=== PATIENT | male | born 1940 | race Caucasian/White ===

== ENCOUNTER 2020-08-10 12:41 | Inpatient (IN) | payer MEDICARE, BC ==
[~2020-08-10] VITALS: Ht 180.3 cm; Wt 90.0 kg
[2020-08-10] VITALS (8 sets, daily range): BP systolic 151–156; BP diastolic 55–102; Ht 180.3 cm; Wt 90.0 kg
--- NOTE | ~2020-08-10 | HEMODYNAMI ---
PATIENT:ANTOLIN FIERRO MEDICAL RECORD: [id number] : 38 LOCATION:[facility] D.2123 ADMISSION DATE: 08/11/20 Generatedon:110:24 Patient name: ANTOLIN FIERRO Patient #: [id number] SSN: [id number] : 1940 Date of study: 08/13/2020 Page: Of Hemodynamic Procedure Report Patient Data Patient Demographics Procedure consent was obtained First Name: ANTOLIN Gender: Male Last Name: VADIM : 1940 Patient #: [id number] Age: 80 year(s) Race: SSN: [id number] Additional ID: [id number] Contact details [address]: [address] [place] [address] State: [place] City: [place] Zip code: [address] Past Medical History Allergies Allergen Reaction Date Comments Reported Other allergy 08/13/2020 ALBUTEROL Admission Admission Data Admission Date: 08/11/2020 Admission Time: 13:18 Arrival Date: 08/13/2020 Arrival Time: 0:00 Admit Source: Other Insurance Payor: Medicare Room #: D.2123 [facility] #: [id number] Height (in.): 71 BSA: 2.1 (m2) Height (cm.): 180.34 BMI: 27.67 (kg/m2) Weight (lbs.): 198.42 Weight (kg.): 90 Lab Results Lab Result Date: 08/13/2020 Lab Result Time: 0:00 Biochemistry Name Units Result Min Max BUN mg/dl 41 --(----)-* 7 18 Creatinine mg/dl 1.7 --(----)-* 0.6 1.3 eGFR ml/min 41 *-(----)-- 90 120 NONAFRICAN CBC Name Units Result Min Max Hematocrit % 38.4 *-(----)-- 42 54 Hemoglobin g/dl 12.6 -*(----)-- 13.5 17.5 Procedure Procedure Types Cath Procedure Diagnostic Procedure LHC Coronaries w/Grafts Aortic Root Angiography Sedation Charges Moderate Sedation 10-24 minutes Procedure Description Procedure Date Procedure Date: 08/13/2020 Procedure Start Time: 10:12 Procedure End Time: 10:23 Procedure Staff Name Function Chris Linton MD Performing Physician Faye Aguilra, RN Nurse Meera Yusuf RT Scrub Pauline Holland RT Monitor Procedure Data Cath Procedure Fluoroscopy Diagnostic fluoroscopy Total fluoroscopy Time: 1.6 time: 1.6 min min Diagnostic fluoroscopy Total fluoroscopy dose: 630 dose: 630 mGy mGy Contrast Material Contrast Material Type Amount (ml) Isovue 370 67 Entry Location Entry Primary Successful Side Size Upsize Upsize Entry Closure Succes sful Closure Location (Fr) 1 (Fr) 2 (Fr) Remarks Device Remarks Femoral Right 5 Fr Exoseal artery Estimated blood loss: 5 ml Diagnostic catheters Device Type Used For End Catheter Placement MULTIPACK JL 4.0 5Fr Procedure catheter MULTIPACK 3DRC 5Fr Procedure catheter MULTIPACK Pigtail 5 Fr Procedure catheter Procedure Complications No complications Procedure Medications Medication Administration Route Dosage Oxygen etCO2 Nasal cannula 2 l/min Heparin Flush Bag added to field 2 bags (1000units/500ml NS) Lidocaine 2% added to field 20 0.9% NaCl I.V. 100 ml/hr Fentanyl I.V. 50 mcg Versed I.V. 1 mg Hemodynamics Rest BSA: 2.1 (m2) HGB: 12.6 (g/dl) O2 Consumption: Estimated: 232.44 (ml/min) O2 Con sumption indexed: Estimated:110.69 (ml/min/m) Heart Rate: 61 (bpm) Snapshots Pre Cath Intra NCS Post Cath Vital Signs Time Heart Resp SPO2 etCO2 NIBP (mmHg) Rhythm Pain Sedation Rate (ipm) (%) (mmHg) Status Level (bpm) 10:04:44 61 19 93 0 144/60(122) NSR 0 (11) 10(A) , No pain 10:09:06 59 19 92 0 135/58(115) NSR 0 (11) 10(A) , No pain 10:13:24 61 20 93 0 138/60(113) NSR 0 (11) 9(A) , No pain 10:17:44 62 20 93 0 136/57(112) NSR 0 (11) 9(A) , No pain 10:22:00 62 19 93 0 132/64(109) NSR 0 (11) 9(A) , No pain Medications Time Medication Route Dose Verified Delivered Reason Notes Eff ectiveness by by 9:46:35 Oxygen etCO2 2 Faye Faye for low 02 Nasal l/min Lauren Aguilar, sats cannula RN RN 9:46:44 Heparin Flush added 2 Faye Faye used for Bag to bags Lauren Aguilar procedure (1000units/500ml field RN RN NS) 9:46:54 Lidocaine 2% added 20ml Faye Chris for local to vial [facility] Lauren John anesthetic field RN 9:47:08 0.9% NaCl I.V. 100 Faye Faye Per ml/hr Lauren Aguilar, physician RN RN 10:11:37 Fentanyl I.V. 50 Faye Faye for mcg Lauren Aguilar, sedation RN RN 10:11:42 Versed I.V. 1 mg Faye Faye for Lauren Aguilar, sedation RN silk trimmer Log Time Note 8:57:46 Informed consent obtained and on chart 8:58:05 Diagnostic Cath Status : Urgent 8:58:17 Arrival Date: 08/13/2020 12:00:00 AM 8:58:18 Admit Source: Other 8:58:21 Insurance Payor : Medicare 8:58:38 Patient Height : 71 inches 8:58:42 Patient Weight : 198.42 lbs 9:01:41 Lab Result : BUN 41 mg/dl 9:01:41 Lab Result : eGFR NONAFRICAN 41 ml/min 9:01:41 Lab Result : Hemoglobin 12.6 g/dl 9:01:41 Lab Result : Creatinine 1.7 mg/dl 9:01:41 Lab Result : Hematocrit 38.4 % 9:04:47 ACC Patient presents with Unstable Angina CCS Anginal Class 2--Slight limitation of ordinary activity. 9:04:50 Procedure Status Urgent Heart Cath (IP). 9:04:52 Time tracking: Regular hours (M-F 7:00 - 5:00) 9:04:57 Plan of Care:Hemodynamics will remain stable., Cardiac rhythm will remain stable., Comfort level will be maintained., Respiratory function will remain adequate., Patient/ family verbilizes understanding of procedure., Procedure tolerated without complication., Recovers from procedure without complications.. 9:05:09 H&P Date Dictated: 08/10/2020 Within 30 days and on chart.. 9:05:11 Pre-procedure instructions explained to patient. 9:05:11 Pre-op teaching completed and patient verbalized understanding. 9:05:12 Family unavailable. 9:05:14 Patient NPO since Midnight. 9:05:26 Patient allergic to Other allergyALBUTEROL 9:05:33 Lab results completed and on chart. 9:05:38 Stress Test: no; N/A ? 9:05:40 Risk of Mortality: 0.5 9:05:42 Risk of blood transfusion: 0.5 9:05:45 Risk of ZACARIAS: 2.3 9:05:46 Alarms reviewed by RValeri N. 9:05:47 Sharps counted by scrub and verified by RValeriN. 9:42:00 Meera Yusuf RT(R) sent for patient. Start room use. 9:46:35 Oxygen 2 l/min etCO2 Nasal cannula was administered by Faye Aguilar RN; for low 02 sats; Verbal order read back and verified. 9:46:44 Heparin Flush Bag (1000units/500ml NS) 2 bags added to field was administered by Faye Aguilar RN; used for procedure; Verbal order read back and verified. 9:46:54 Lidocaine 2% 20ml vial added to field was administered by Chris Linton MD; for local anesthetic; Verbal order read back and verified. 9:47:08 0.9% NaCl 100 ml/hr I.V. was administered by Faye Aguilar RN; Per physician; Verbal order read back and verified. 10:03:20 Patient received from Med II to CCL 2 Alert and oriented. Tansferred to table in Supine position. 10:03:21 Warm blankets applied, and james hugger turned on for patient comfort. 10:03:22 Correct patient and procedure confirmed by team. 10:03:22 ECG and BP/O2 sat monitors applied to patient. 10:03:24 Full Disclosure recording started 10:03:25 Vital chart was started 10:03:26 Baseline sample Acquired. 10:03:35 Rhythm: sinus bradycardia 10:03:40 Is the patient allergic to Iodine/contrast media? No. 10:03:42 Was the patient premedicated? Yes 10:03:43 Is patient on blood thinner?Yes 10:03:49 ACC The patient was administered the following blood thiners within the last 24 hours: Coumadin 10:03:51 Patient diabetic? Yes. 10:03:53 If diabetic: On Metformin? No 10:03:57 ----Pre-sedation anethsthesia assessment.---- 10:04:02 Previous problem with sedation/anesthesia? No ? 10:04:03 Snore? Yes 10:04:04 Sleep apnea? No 10:04:05 Deviated septum? No 10:04:07 Opens mouth fully? Yes 10:04:08 Sticks out tongue? Yes 10:04:09 Airway obstruction? No ? 10:04:11 Dentures? No ? 10:04:15 Pre procedure: right dorsailis pedis pulse 1+ Palpable, but thready & weak; easily obliterated 10:04:18 Patient pain scale 0/10 ?. 10:04:26 IV patent on arrival in left wrist with 0.9% NaCl at O. 10:04:33 Right groin area was prepped with chlora-prep and draped in sterile fashion 10:04:36 Use device set Femoral Dx 10:04:37 ACIST Syringe (80579) opened to sterile field. 10:04:37 Bag Decanter (2002S) opened to sterile field. 10:04:38 Medline Cath Pack ([id number]) opened to sterile field. 10:04:39 ACIST Hand Control (73036) opened to sterile field. 10:04:40 ACIST Manifold (42008) opened to sterile field. 10:04:40 DIAGNOSTIC Multipack 5Fr catheter set (JB9804) opened to sterile field. 10:04:43 SHEATH 5FR [place] (WVS605) opened to sterile field. 10:04:43 EMERALD Guide Wire (876-811) opened to sterile field. 10:04:45 Tegaderm 4 x 4 (1626W) opened to sterile field. 10:09:17 Procedure type changed to Cath procedure, Diagnostic procedure, LHC, Coronaries w/Grafts, Aortic Root Angiography, Sedation Charges, Moderate Sedation 10-24 minutes 10:09:26 --------ALL STOP TIME OUT------ 10:09:27 Final Timeout: patient, procedure, and site verified with staff and physician. All members of the team are in agreement. 10:09:28 Right groin site verified by team. 10:09:31 Fire Safety Assessment: A--An alcohol-based skin anteseptic being used preoperatively., C--Open oxygen or nitrous oxide is being used., D--An ESU, laser, or fiber-optic light is being used. 10:09:35 Physical assessment completed. ASA score P 2 - A patient with mild systemic disease as per Chris Linton MD. 10:09:41 3b) 30-44 Moderately reduced kidney function. 10:09:44 Maximum allowable contrast dose (3.7 X eGFR X 0.75)114 ml. 10:09:48 Sedation plan: IV Moderate Sedation Medication:Versed, Fentanyl 10:11:37 Fentanyl 50 mcg I.V. was administered by Faye Aguilar RN; for sedation; Verbal order read back and verified. 10:11:42 Versed 1 mg I.V. was administered by Faye Aguilar RN; for sedation; Verbal order read back and verified. 10:12:18 Procedure started. 10:12:24 Local anesthetic to right femoral artery with Lidocaine 2% by Chris Linton MD.INITIAL ACCESS ONLY 10:13:31 A 5 Fr sheath was inserted into the Right Femoral artery 10:13:45 A MULTIPACK JL 4.0 5Fr catheter was advanced over the wire and used for Procedure. 10:14:39 LCA angiography performed. 10:14:42 Injector settings: Ml/sec: 3, Volume: 6, 10:15:00 Catheter removed. 10:15:09 A MULTIPACK 3DRC 5Fr catheter was advanced over the wire and used for Procedure. 10:16:08 RCA angiography performed. 10:16:11 Injector settings: Ml/sec: 3, Volume: 6, 10:16:19 ACCDominant side:Right 10:16:48 MCINTYRE to LAD angiography performed. 10:16:56 Injector settings: Ml/sec: 3, Volume: 6, 10:17:11 Catheter removed. 10:17:18 A MULTIPACK Pigtail 5 Fr catheter was advanced over the wire and used for Procedure. 10:18:20 Aortic Root visualized 10:18:23 Injector settings: Ml/sec: 10, Volume: 20, 10:18:58 Catheter removed. 10:19:07 EXOSEAL 5Fr (EX500) opened to sterile field. 10:19:27 Sheath removed intact; hemostasis achieved with Exoseal to the Right Femoral artery. 10:19:36 Fluoroscopy dose: 630 mGy 10:19:56 Sharps counted by scrub and verified by R.N. 10:21:15 Procedure ended.(Physican Out) 10:21:29 Fluoroscopy time 01.60 minutes. 10:21:31 Flurop Dose total: 630 10:21:37 Dose Area Product 36751 mGy/cm. 10:21:39 Contrast amount:Isovue 370 67ml. 10:21:41 Maximum allowable dose exceeded? No. 10:21:46 Post-op/insertion site Right Femoral artery dressed using a 4 x 4 and Tegaderm. 10:21:48 Post right femoral artery:stable, soft, clean and dry 10:21:51 Post Procedure Pulses reassessed and unchanged 10:21:53 Post procedure: right dorsailis pedis pulse 1+ Palpable, but thready & weak; easily obliterated. 10:21:57 Post-procedure physical assessment completed. ASA score P 2 - A patient with mild systemic disease as per Chris Linton MD. 10:22:02 Post procedure rhythm: unchanged. 10:22:06 Estimated blood loss: 5 ml 10:22:09 Post procedure instruction explained to patient.Patient verbalizes understanding. 10:22:12 Patient needs reinforcement of post procedure teaching. 10:22:39 Procedure and supply charges have been captured, reviewed, submitted and are correct. 10:22:43 Procedure Complication : No complications 10:22:59 [facility] Findings: mild to moderate CAD (<70%) 10:23:00 Operative report dictated upon procedure completion. 10:23:01 See physician's report for complete and final results. 10:23:03 Report given to [facility]. 10:23:06 Patient transfered to [facility] with Bed. 10:23:08 Procedure ended. 10:23:08 Full Disclosure recording stopped 10:23:20 End room use (Document Last) 10:23:54 End room use (Document Last) 10:24:33 End room use (Document Last) 10:24:47 Vital chart was stopped Device Usage Item Name Manufacture Quantity Catalog Hospital Part Current Minimal L ot# / Number Charge Number Stock Stock Serial# Code ACIST Acist 1 54946 109617 499340 598169 20 Syringe Medical (25273) Systems Inc Bag Microtek 1 2001S 551886 61516 305350 5 Decanter Medical Inc. () Medline Medline 1 [id number] 746321 71863 145775 5 Cath Pack ([id number]) ACIST Hand Acist 1 28616 726987 187625 972790 5 Control Medical (34349) Systems Inc ACIST Acist 1 30913 540252 970644 441110 5 Manifold Medical (49952) Systems Inc DIAGNOSTIC Cardinal 1 KJ2272 141912 78153 732240 30 Multipack Health 5Fr catheter set (AL5595) SHEATH 5FR Terumo 1 YEZ904 180239 440608 311010 5 [place] (NZN531) EMERALD Cardinal 1 502-455 412422 285242 011036 5 Guide Wire [facility] (502-455) Tegaderm 4 3M 1 1626W 469527 378757 082168 5 x 4 (1626W) MULTIPACK Cardinal 1 222228 5 JL 4.0 5Fr Health catheter MULTIPACK Cardinal 1 888180 5 3DRC 5Fr Health catheter MULTIPACK Cardinal 1 854708 5 Pigtail 5 Health Fr catheter EXOSEAL 5Fr Cardinal 1 EX500 841448 769727 087531 10 (EX500) Health Signature Audit [place] Stage Time Signature Unsigned Intra-Procedure 08/13/2020 Pauline Holland 10:23:54 AM RT(R) Intra-Procedure 08/13/2020 Faye Aguilar, 10:24:33 AM RN Intra-Procedure 08/13/2020 Chris Armendariz 10:24:46 AM Abundio SCHWARTZ Signatures Performing Physician : Signature : Chris Linton MD Date : Time : Nurse : Faye Aguilar, Signature : RN Date : Time : Monitor : Pauline Young Signature : RT Date : Time : [address] [place] [address]
[2020-08-10 13:30] LABS: BASOPHILS 0.5 % (0-2); EOSINOPHILS 2.3 % (0-7); HEMATOCRIT 44.9 % (42.0-54.0); HEMOGLOBIN 14.7 g/dL (13.5-17.5); IMMATURE GRANULOCYTES 0.6 % (0-5); LYMPHOCYTE ABS# 1.04 10x3/uL (1.32-3.57); LYMPHOCYTES 9.4 % (15-50); MCH 29.3 pg (26.0-34.0); MCHC 32.7 g/dL (31.0-37.0); MCV 89.4 fL (80.0-100.0); MEAN PLATELET VOLUME 10.6 fL (7.4-10.4); MONOCYTES 8.7 % (2-11); NEUTROPHIL ABS# 8.71 10x3/uL (1.78-5.38); NEUTROPHILS 78.5 % (40-80); PLATELET COUNT 232 10x3/uL (130-400); RBC 5.02 10x6/uL (4.20-6.10); RDW 15.6 % (11.5-14.5); WBC 11.1 10x3/uL (4.8-10.8)
[2020-08-10 13:36] LABS: CALC OSMOLALITY 288 mosm/kg (275-300); CALCIUM 9.4 mg/dL (8.5-10.1); CARBON DIOXIDE 27.8 mmol/L (21.0-32.0); CHLORIDE - SERUM 106 mmol/L (98-107); CREATININE - SERUM 1.7 mg/dL (0.6-1.3); GLUCOSE 75 mg/dL (74-106); POTASSIUM - SERUM 4.4 mmol/L (3.5-5.1); SODIUM 142 mmol/L (136-145); UREA NITROGEN 33 mg/dL (7-18); eGFR NON AFRICAN AMERICAN 41 mL/min (90-120)
[2020-08-10 13:37] LABS: APTT 40.3 SECONDS (22.8-39.4); INR 2.3 (0.85-1.17); PROTIME 23.5 SECONDS (11.6-15.0)
[2020-08-10 14:00] LABS: ALBUMIN 3.5 g/dL (3.4-5.0); ALKALINE PHOSPHATASE 137 U/L (30-120); ALT (SGPT) 18 U/L (10-68); BILIRUBIN - TOTAL 0.81 mg/dL (0.2-1.3); CKMB 8.9 U/L (0.0-3.6); CREATINE KINASE 164 UL (21-232); MAGNESIUM - SERUM 2.2 mg/dL (1.8-2.4); PROTEIN - SERUM 7.7 g/dL (6.4-8.2)
--- NOTE | 2020-08-10 14:13 | NUR ---
GALLERY OR MUSEUM GUIDE JANET STATES THAT PATIENT HAS ANOTHER CRITICAL TROPONIN OF GREATER THAN 2.
--- NOTE | 2020-08-10 14:31 | NUR ---
PATIENT ASSISTED TO SITTING POSITION ON SIDE OF BED AND GIVEN URINAL.
--- NOTE | 2020-08-10 15:02 | NUR ---
GIVEN ICE WATER. PATIENT GIVEN SCHED MEDS. NAD. WILL MONITOR. DENIES FURTHER NEEDS.
[2020-08-10] MEDS ORDERED: TENORMIN50 MG PO (15:49)
[2020-08-10] MEDS ORDERED: TRUSOPT 2 % OPT10 ML EACH EYE (15:50)
[2020-08-10] MEDS ORDERED: LASIX80 MG PO (15:50)
[2020-08-10] MEDS ORDERED: GLIPIZIDE10 MG PO (15:50)
[2020-08-10] MEDS ORDERED: COZAAR50 MG PO (15:51)
[2020-08-10] MEDS ORDERED: LEVOTHYROXINE137 MCG PO (15:51)
[2020-08-10] MEDS ORDERED: NOVOLIN 70/30 110 ML SC ×2 (15:52)
[2020-08-10] MEDS ORDERED: K-DUR20 MEQ PO (15:53)
[2020-08-10] MEDS ORDERED: ALDACTONE25 MG PO (15:53)
[2020-08-10] MEDS ORDERED: PACERONE100 MG PO (15:53)
[2020-08-10] MEDS ORDERED: JANTOVEN5 MG PO (15:54)
[2020-08-10] MEDS ORDERED: TOUJEO SOL300 UNIT/1 SC (15:54)
[2020-08-10] MEDS ORDERED: PRAVACHOL20 MG PO (15:55)
--- NOTE | 2020-08-10 16:19 | NUR ---
ATTEMPTED TO CALL REPORT, CAMPGROUND CARETAKER ON MED II STATES "CAN SHE JUST CALL YOU BACK". AWAITING CALL BACK.
--- NOTE | 2020-08-10 17:06 | NUR ---
REPORT CALLED TO ALEXIA GARZA.
--- NOTE | 2020-08-10 17:55 | NUR ---
PT ARRIVED TO UNIT VIA WHEELCHAIR. PT AAOX4. NO DISTRESS NOTED. PT SETTLED INTO ROOM. CLIR. BED IN LOWEST POSITION. SIDE RAILS X2. GIVEN SANDWICH FOR DINNER
[2020-08-10 18:01] LABS: CKMB 9.6 U/L (0.0-3.6); CREATINE KINASE 158 UL (21-232)
[2020-08-10 18:05] LABS: TROPONIN-I 3.608 ng/mL (0.000-0.060)
--- NOTE | 2020-08-10 22:50 | NUR ---
INITIAL ROUNDS COMPLETED AT 1915 HRS. PT DENIED ANY DISCOMFORT. TELE PLACED AT 1950 HRS. SR PER CM HR 60. PM FSBS 171. INSULIN GOVEN PER S/S TO L ABD. ADMISSION ASSESSMENT COMPLETED AT 2215 HRS. VSS. SR PER CM HR 61. ALERT AND ORIENTED TO PERSON, PLACE AND TIME. JUSTICE. IV TO L HAND WITH NS AT 50CC/HR. PT DENIED ANY DISCOMFORT. PT CURRENTLY RESTING WITH EYES CLOSED. RESP EVEN AND REGULAR. CALL LIGHT WITHIN REACH.
--- NOTE | 2020-08-11 00:14 | NUR ---
PT RESTING WITH EYES CLOSED. RESP EVEN AND REGULAR. CALL LIGHT WITHIN REACH.
--- NOTE | 2020-08-11 02:14 | NUR ---
TYLENOL 650 MG PO GIVEN FOR C/O NECK SORENESS. CALL LIGHT WITHIN REACH.
--- NOTE | 2020-08-11 04:31 | NUR ---
PT RESTING WITH EYES CLOSED. RESP EVEN AND REGULAR. CALL LIGHT WITHIN REACH.
[2020-08-11 05:06] VITALS: BP 141/44
--- NOTE | 2020-08-11 05:55 | NUR ---
VSS THROUGHOUT NIGHT. SR/SB PER CM. PT STATED TYLENOL ALLEVIATED NECK PAIN. AM FSBS 118. NO COVERAGE NEEDED. NPO UNTIL SEEN BY CARDIOLOGY. WILL CONTINUETO MONITOR.
[2020-08-11 06:08] LABS: BASOPHILS 0.2 % (0-2); EOSINOPHILS 2.2 % (0-7); HEMATOCRIT 41.4 % (42.0-54.0); HEMOGLOBIN 13.3 g/dL (13.5-17.5); IMMATURE GRANULOCYTES 0.7 % (0-5); LYMPHOCYTE ABS# 0.65 10x3/uL (1.32-3.57); LYMPHOCYTES 7.9 % (15-50); MCHC 32.1 g/dL (31.0-37.0); MCV 90.2 fL (80.0-100.0); MEAN PLATELET VOLUME 10.7 fL (7.4-10.4); MONOCYTES 12.2 % (2-11); NEUTROPHIL ABS# 6.32 10x3/uL (1.78-5.38); NEUTROPHILS 76.8 % (40-80); PLATELET COUNT 217 10x3/uL (130-400); RBC 4.59 10x6/uL (4.20-6.10); RDW 15.6 % (11.5-14.5)
[2020-08-11 06:16] LABS: WBC 8.2 10x3/uL (4.8-10.8)
[2020-08-11 06:24] LABS: INR 2.49 (0.85-1.17); PROTIME 25.1 SECONDS (11.6-15.0)
[2020-08-11 06:34] LABS: ALBUMIN 2.8 g/dL (3.4-5.0); ANION GAP 12.5 mmol/L (8-16); BILIRUBIN - TOTAL 0.78 mg/dL (0.2-1.3); CARBON DIOXIDE 25.5 mmol/L (21.0-32.0); CREATININE - SERUM 1.8 mg/dL (0.6-1.3); MAGNESIUM - SERUM 2.1 mg/dL (1.8-2.4); PHOSPHOROUS 4.6 mg/dL (2.5-4.9); PROTEIN - SERUM 6.4 g/dL (6.4-8.2); THYROID STIMULATING HORMONE 1.91 uIU/mL (0.36-3.74)
[2020-08-11 07:49] VITALS: BP 135/50
--- NOTE | 2020-08-11 08:00 | NUR ---
PT RECEIVED AWAKE AND ALERT IN BED. ASKING FOR BREAKFAST. INFORMED OF NPO STATUS FOR CARDIAC CONSULT.
[2020-08-11 11:13] LABS: CKMB 5.1 U/L (0.0-3.6); CREATINE KINASE 133 UL (21-232)
[2020-08-11 11:15] LABS: TROPONIN-I 4.307 ng/mL (0.000-0.060)
[2020-08-11 11:50] VITALS: BP 132/49
[2020-08-11 15:39] VITALS: BP 133/52
[2020-08-11 18:28] LABS: BILIRUBIN NEGATIVE (NEGATIVE); KETONE NEGATIVE (NEGATIVE); NITRITE NEGATIVE (NEGATIVE); UROBILINOGEN NORMAL mg/dL (< 2)
[2020-08-11 18:29] LABS: BACTERIA FEW HPF (NONE SEEN); SQUAMOUS EPITHELIAL 0-5 HPF (0-4); WHITE CELLS - URINE 0-5 HPF (0-1)
--- NOTE | 2020-08-11 20:00 | NUR ---
INITIAL ROUNDS AND ASSESSMENT COMPLETED. PT ALERT/ORIENTED. SB/56 PER TELEMETRY. IV TO LEFT HAND WITH NS @ 50ML/HR. NONLABORED RESPIRATIONS ON ROOM AIR. PLAN OF CARE REVIEWED, CALL LIGHT IN REACH.
[2020-08-11 20:30] VITALS: BP 137/50
--- NOTE | 2020-08-11 20:47 | NUR ---
BEDTIME MEDS GIVEN. ADMINISTERED PROTOCOL DOSE OF POTASSIUM 20MEQ ORAL FOR POTASSIUM LEVEL OF 3.5 FROM THIS AM. PT TELLING NURSE HE WANTS ALL OF HIS BP MEDS GIVEN AT 0600 IN AM, INSTEAD OF 0900 BECAUSE HE THINKS THAT IS THE REASON HIS BP GETS SO HIGH DURING THE DAY. CALL LIGHT IN REACH.
[2020-08-12 04:30] VITALS: BP 155/56
[2020-08-12 07:00] LABS: ALBUMIN 2.8 g/dL (3.4-5.0); BILIRUBIN - TOTAL 0.91 mg/dL (0.2-1.3); CALCIUM 8.5 mg/dL (8.5-10.1); CREATININE - SERUM 1.8 mg/dL (0.6-1.3); PHOSPHOROUS 3.9 mg/dL (2.5-4.9); PROTEIN - SERUM 6.6 g/dL (6.4-8.2)
[2020-08-12 07:03] LABS: ANION GAP 13.9 mmol/L (8-16); POTASSIUM - SERUM 3.9 mmol/L (3.5-5.1)
[2020-08-12 07:18] LABS: BASOPHILS 0.7 % (0-2); EOSINOPHILS 2.7 % (0-7); HEMATOCRIT 39.7 % (42.0-54.0); HEMOGLOBIN 12.9 g/dL (13.5-17.5); IMMATURE GRANULOCYTES 0.7 % (0-5); LYMPHOCYTE ABS# 0.81 10x3/uL (1.32-3.57); LYMPHOCYTES 9.8 % (15-50); MCH 29.1 pg (26.0-34.0); MCHC 32.5 g/dL (31.0-37.0); MCV 89.4 fL (80.0-100.0); MEAN PLATELET VOLUME 11.4 fL (7.4-10.4); MONOCYTES 12.1 % (2-11); NEUTROPHIL ABS# 6.13 10x3/uL (1.78-5.38); PLATELET COUNT 229 10x3/uL (130-400); RBC 4.44 10x6/uL (4.20-6.10); RDW 15.5 % (11.5-14.5); WBC 8.3 10x3/uL (4.8-10.8)
--- NOTE | 2020-08-12 07:20 | NUR ---
RECIEVE REPORT. RESTING IN BED WITH EYES CLOSED. AROUSES TO STIMULI. NO SIGNS OF DISTRESS. DENIES ANY NEEDS. CONTINUE PLAN OF CARE AND SAFETY PRECAUTIONS.
[2020-08-12 07:22] LABS: INR 2.2 (0.85-1.17); PROTIME 22.7 SECONDS (11.6-15.0)
[2020-08-12 08:35] VITALS: BP 161/56
--- NOTE | 2020-08-12 08:51 | EC ---
PATIENT:ANTOLIN FIERRO DATE OF SERVICE: 08/11/20 SEX: M MEDICAL RECORD: [id number] DATE OF : 39 LOCATION:D. D.212 AGE OF PATIENT: 80 ADMISSION DATE: 08/11/20 REFERRING PHYSICIAN: INTERPRETING PHYSICIAN: MARGY DIAZ MD ECHOCARDIOGRAM REPORT ECHO CHARGES 4 ECHO COMPLETE Date: 08/11/20 CLINICAL DIAGNOSIS: AORTIC VALVE REPLACEMENT ,VA ASSESS EF AMD VALVES ECHOCARDIOGRAPHIC MEASUREMENTS (adult normal given) AC root (d.<3.7cm) 3.4 cm LV Septum d (<1.2 cm> 1.4 cm Valve Excursion 1.3 cm LV Septum (systole) 1.8 cm Left Atria (s.<4.0cm> 4.6 cm LVPW d(<1.2cm) 1.7 cm RV (d.<2.3cm) 3.4 cm LVPW (sytole) 2.2 cm LV diastole(<5.6CM) 4.3 cm MV E-F(>70mm/sec) cm LV systole 2.1 cm LVOT Diameter 1.6 cm MV exc.(>10mm) 1.8 cm Est.ejection fraction (50-75%) % DOPPLER: LVIT cm/sec A 159.0cm/sec E 115.0 cm/sec LA cm/sec RVSP 53 mmHg LVOT 97 cm/sec AOP1/2T m/s Asc. Ao 224 cm/sec RVOT 96 cm/sec RA cm/sec PA 109 cm/sec AV Gradient Peak 20.10mmHg AV Mean 10.03mmHg AV Area 1.1 cm MV Gradient Peak 7.93 mmHg MV Mean 2.35 mmHg MV Area cm COMMENTS: Bagman/Woman: Sharif STEVENS Quarry Plug And Feather Driller: 5 Dr. Diaz TAPE# PACS Pericardial Effusion N DATE OF SERVICE: CLINICAL INDICATION: History of AVR. INTERPRETATION: Technically difficult study, overall normal left ventricular chamber size and contractile function with mild concentric left ventricular hypertrophy, ejection fraction of 55% to 60%. Left atrial chamber enlargement. Right atrium and right ventricular chamber size and function appears normal. Aortic valve appear bioprosthetic, not well visualized, but function appears normal. Mild aortic regurgitation. Mitral valve appears normal. Mild mitral ECHOCARDIOGRAM REPORT [id number] ANTOLIN FIERRO annular calcification. Mild mitral regurgitation. Tricuspid valve appears normal. Mild tricuspid regurgitation. Pulmonic valve appears normal. Mild pulmonary regurgitation. No pericardial effusion visualized. IMPRESSION: 1. Technically difficult study. Overall, normal left ventricular chamber size and contractile function with mild concentric left ventricular hypertrophy with ejection fraction of 55% to 60%. 2. Bioprosthetic aortic valve, not well visualized, but appeared normal function. Mild aortic regurgitation. TRANSINT:[id number] Voice Confirmation ID: [id number] DOCUMENT ID: [id number] MARGY DIAZ MD at 0851 CC: [id number] DICTATION DATE: 08/11/20 1230 MARKETING EDUCATION TEACHER: 08/11/20 1644 ADM IN [facility] [address] [id number]
[2020-08-12 12:10] VITALS: BP 146/51
[2020-08-12 16:16] VITALS: BP 140/56
--- NOTE | 2020-08-12 20:00 | NUR ---
INITIAL ROUNDS AND ASSESSMENT COMPLETED. PT RESTING IN BED. ALERT/ORIENTED. NONLABORED RESPIRATIONS ON ROOM AIR. IV TO LEFT HAND WITH NS @ 50ML/HR. SB/SR PER TELEMETRY. DENIES PAIN OR DISCOMFORT. INSTRUCT ON NPO AFTER MIDNIGHT FOR PLANNED HEART CATH IN THE AM. CALL LIGHT IN REACH.
[2020-08-12 22:30] VITALS: BP 141/59
--- NOTE | 2020-08-13 02:44 | NUR ---
RESTING IN BED, RESPS EVEN/NONLABORED. IVF INFUSING. CALL LIGHT IN REACH.
--- NOTE | 2020-08-13 04:49 | NUR ---
PT RESTING WITH EYES CLOSED. RESP EVEN AND REGULAR. SR UP X2, CALL LIGHT WITHIN REACH.
--- NOTE | 2020-08-13 05:40 | NUR ---
FSBS 142, IVF NS @ 50ML/HR INFUSING. PT HAS BEEN NPO SINCE MIDNIGHT FOR HEART CATH THIS AM. VSS. CALL LIGHT IN REACH. PT NOW AWAKE/ALERT AND UP AND ABOUT IN HIS ROOM.
[2020-08-13 06:24] LABS: INR 1.84 (0.85-1.17); PROTIME 19.7 SECONDS (11.6-15.0)
[2020-08-13 06:28] LABS: BASOPHILS 0.4 % (0-2); HEMATOCRIT 38.4 % (42.0-54.0); HEMOGLOBIN 12.6 g/dL (13.5-17.5); IMMATURE GRANULOCYTES 0.5 % (0-5); LYMPHOCYTE ABS# 0.97 10x3/uL (1.32-3.57); MCH 29.3 pg (26.0-34.0); MCHC 32.8 g/dL (31.0-37.0); MCV 89.3 fL (80.0-100.0); MEAN PLATELET VOLUME 10.9 fL (7.4-10.4); MONOCYTES 6.4 % (2-11); NEUTROPHIL ABS# 6.31 10x3/uL (1.78-5.38); NEUTROPHILS 77.7 % (40-80); PLATELET COUNT 205 10x3/uL (130-400); RDW 15.5 % (11.5-14.5); WBC 8.1 10x3/uL (4.8-10.8)
[2020-08-13 06:36] LABS: ALBUMIN 2.9 g/dL (3.4-5.0); ANION GAP 12.9 mmol/L (8-16); BILIRUBIN - TOTAL 0.9 mg/dL (0.2-1.3); CALCIUM 8.5 mg/dL (8.5-10.1); CARBON DIOXIDE 22.4 mmol/L (21.0-32.0); CHOL - HDL RATIO 5.3 ratio (2.3-4.9); CREATININE - SERUM 1.7 mg/dL (0.6-1.3); LDL-HDL RATIO 3.1 ratio (1.5-3.5); MAGNESIUM - SERUM 2.1 mg/dL (1.8-2.4); PHOSPHOROUS 3.6 mg/dL (2.5-4.9); POTASSIUM - SERUM 4.3 mmol/L (3.5-5.1); PROTEIN - SERUM 6.7 g/dL (6.4-8.2)
--- NOTE | 2020-08-13 07:20 | NUR ---
RECIEVE REPORT. RESTING IN BED WITH EYES CLOSED. AROUSES TO STIMULI. CONSENTS FOR MUSEUM SECURITY CHIEF SIGNED ON CHART. SINUS OPHELIA 54 ON TELEMETRY. DENIES ANY NEEDS. CONTINUE PLAN OF CARE AND SAFETY PRECAUTIONS.
[2020-08-13 08:58] VITALS: BP 149/56
--- NOTE | 2020-08-13 09:55 | NUR ---
ALERT AND ORIENTED X4. PREOP COMPLETE. TAKEN TO CLOTH PIECER VIA BED. CONTINUE PLAN OF CARE AND SAFETY PRECAUTIONS.
--- NOTE | 2020-08-13 10:56 | NUR ---
ARRIVE BACK TO ROOM VIA BED FROM CUT AND PRINT MACHINE OPERATOR. BP-140/53, HR-59, R-14, O2-93% RA. RT GROIN DRESSING C/D/I. PULSE PALPABLE BILATERALLY. SPOUSE AT BEDSIDE. CONTINUE PLAN OF CARE AND SAFETY PRECAUTIONS.
--- NOTE | 2020-08-13 14:48 | NUR ---
ALERT AND ORIENTED X4. SITTING UP ON SIDE OF BED. DC LT HAND IV TIP INTACT. DISCHARGE INTRUCTIONS GIVEN VERBALLY AND WRITTEN. DISCHARGE PAPERS SIGNED ON CHART. RT GROIN DRESSING REMAINS C/D/I. FREE FROM HEMATOM. FREE FROM BLEEDING. ESCORT TO RIDE VIA WHEELCHAIR. REMAINS FREE FROM INJURY.
--- NOTE | 2020-08-14 04:22 | MORECARE ---
CASE MANAGEMENT DISCHARGE SUMMARY PATIENT: ANTOLIN FIERRO UNIT: [id number] ADM DATE: 08/11/20 AGE: 80 : 39 SEX: M ROOM/BED: D.2123 AUTHOR: FRANK,DOC PHYSICIAN: REFERRING PHYSICIAN: DARÍO SYLVESTER MD DATE OF SERVICE: 08/14/20 Case Management Discharge Planning Summary CT Patient Name: ANTOLIN FIERRO Attending MD : DARÍO MODI Medical Record: [id number] Encounter : [id number] Facility : [id number] [facility] Admission Date : 113:18 Center Discharge Date : 08/13/[address] [place] [address] Date of : DC Plan ID : [id number] Age/Sex/Martia : 80/ M/M Printed on : 08/14/20 4:20 CT DCP Review Details Anticipated D/C: Expected LOS : Case Status : INITIATED - Initial Reviewe: [id number] Cerda Initial Review: 08/10/2020 Planned Disposi: 01 - Home or Self Care (Routine Discharge) Final Discharge: 01 - Home or Self Care (Routine Discharge) Final Reviewer : WERO : Acacia Cerda Final Review : 08/14/2020 DCP Focus Questions & Answers [facility] ANTOLIN FIERRO MR#: [id number] /Age/Sex/[id number] /80/M /M Attending Physician Name: DARÍO SYLVESTER [id number] Patient Account:[id number] [facility] Page -1 of 1 All edits/amendments must be made on the electronic document DICTATION DATE: 08/14/20419 ETCHER ELECTROLYTIC: DM 08/14/20419 RPT#: [id number] DC DATE:08/13/20 STATUS: DIS IN [address] [address] END OF REPORT
--- NOTE | 2020-08-15 08:08 | OP ---
PATIENT NAME: ANTOLIN FIERRO MEDICAL RECORD: [id number] :38 LOCATION:D.M2 D.3 ADMISSION DATE:08/11/20 SURGEON: YAMILA MAHARAJ MD DATE OF OPERATION: 08/13/2020 PROCEDURE: Left heart catheterization, selective coronary angiography, right femoral artery approach. CATHETERS: A 5-Vietnamese sheath, 5/4 left and right Thaddeus, 5/4 pig. The procedure was well tolerated. The patient returned to [place]rent. Sheath removed. ExoSeal device placed. FINDINGS: Left ventriculography not performed. Aortic root injection was performed secondary to a prosthetic aortic valve. Technically difficult assessment via echo and this showed no more than mild AI. CORONARY ANATOMY: Left main: Left main is free of disease. LAD: Fills for a short period of time and is seen via competitive flow from the MCINTYRE. Circumflex: Free of disease. Right coronary artery: Dominant artery, gives rise to PDA, free of disease. MCINTYRE to LAD is widely patent. IMPRESSION: Mildly patent MCINTYRE to the LAD. No progression of rincon disease. For medical management and risk factor modification. TRANSINT:[id number] Voice Confirmation ID: [id number] DOCUMENT ID: [id number] YAMILA MAHARAJ MD at 0808 CC: [id number] DICTATION DATE: 08/13/20 1028 RADAR TECHNICIAN: 08/13/20 1256 DIS IN 08/13/20 [facility] [address] [id number]
== END 2020-08-13 14:49 | disposition home or self-care (01) | DRG 280 ==
LOC: D.ER 12:41 → D.M2 15:55 → OBSVTIME 15:55 → D.M2 15:55
PROVIDERS: Emergency Medicine; Internal Medicine Interventional Cardiology; ADMIT Emergency Medicine; ATTEND Emergency Medicine
PROC: 4A023N7 Measurement of Cardiac Sampling and Pressure, Left Heart, Percutaneous Approach (ICD-10-PCS; principal; 2020-08-11)
PROC: B2131ZZ Fluoroscopy of Multiple Coronary Artery Bypass Grafts using Low Osmolar Contrast (ICD-10-PCS; 2020-08-11)
DX: I21.4 Non-ST elevation (NSTEMI) myocardial infarction (principal); I50.23 Acute on chronic systolic (congestive) heart failure; I25.110 Atherosclerotic heart disease of native coronary artery with unstable angina pectoris; E11.22 Type 2 diabetes mellitus with diabetic chronic kidney disease; E03.9 Hypothyroidism, unspecified; E78.5 Hyperlipidemia, unspecified; Z79.84 Long term (current) use of oral hypoglycemic drugs; N18.30 Chronic kidney disease, stage 3 unspecified; Z79.01 Long term (current) use of anticoagulants